=== PATIENT | female | born 1985 | race Caucasian/White ===

== ENCOUNTER 2017-05-17 16:37 | Emergency (ER) | payer OTHER ==
--- NOTE | 2017-05-17 16:41 | PDOC ---
Rapid Medical Evaluation Time Seen by Provider: 05/17/17 16:39 Medical Evaluation: 05/17/17 16:39 I have performed a brief in-person evaluation of this patient. The patient presents with a chief complaint of: , vaginal bleeding x 2 days , denies pain, LMP 3/, + home Pertinent physical exam findings: n/a I have ordered the following: labs, US The patient will proceed to the ED for further evaluation. Discharge Disposition - Diagnosis Vaginal bleeding - Referrals - Patient Instructions - Post Discharge Activity
[2017-05-17 16:42] VITALS: BP 148/85; PULSE 89; TEMP 98; BMI 27.3
[2017-05-17 17:44] LABS: BASO % 0.8 % (0-2.0); EOS % 0.5 % (0-4.5); HEMATOCRIT 44.9 % (32.4-45.2); HEMOGLOBIN 15.4 GM/dL (10.7-15.3); LYMPH % 10.7 % (8-40); MCH 31.7 pg (25.7-33.7); MCHC 34.4 g/dl (32.0-36.0); MEAN CELL VOLUME 92.4 fl (80-96); MEAN PLT VOLUME 8.9 fl (7.5-11.1); MONO % 6.5 % (3.8-10.2); NEUT % 81.5 % (42.8-82.8); PLATELET COUNT 284 K/MM3 (134-434); RBC 4.86 M/mm3 (3.60-5.2); RDW 12.6 % (11.6-15.6); WHITE BLOOD COUNT 10.3 K/mm3 (4.0-10.0)
[2017-05-17 18:11] LABS: ALBUMIN 4.1 g/dl (3.4-5.0); ALK PHOS 69 U/L (45-117); ANION GAP 6 (8-16); BILIRUBIN,TOTAL 0.2 mg/dL (0.2-1.0); BLOOD UREA NITROGEN 7 mg/dL (7-18); CALCIUM 8.9 mg/dL (8.5-10.1); CHLORIDE 106 mmol/L (98-107); CO2 26 mmol/L (21-32); CREATININE 0.7 mg/dL (0.55-1.02); GLUCOSE,RANDOM 77 mg/dL (74-106); POTASSIUM 4.3 mmol/L (3.5-5.1); SGOT/AST 24 U/L (15-37); SGPT/ALT 26 U/L (12-78); SODIUM 138 mmol/L (136-145); TOT PROT 7.4 g/dl (6.4-8.2)
--- NOTE | 2017-05-17 18:39 | PDOC ---
History of Present Illness - General Chief Complaint: Vaginal Bleeding Stated Complaint: VAGINAL BLEEDING (POSSIBLE ) Time Seen by Provider: 05/17/17 16:39 - History of Present Illness Initial Comments: 05/17/17 18:54 31yo F p/w 1 episode of pink vaginal discharge today and mild period like cramping yesterday, resolved today. Pt had positive test today. She requests confirmation of with labs and US. Denies current pain or vag bleeding. Denies headache, weakness, CP, SOB, abd pain, dysuria, frequency, urgency, LE edema, numbness. Past History - Past Medical History Allergies/Adverse Reactions: Allergies Allergy/AdvReac Type Severity Reaction Status Date / Time No Known Allergies Allergy Verified 05/17/17 16:42 Home Medications: Ambulatory Orders NK [No Known Home Medication] 05/17/17 COPD: No - Reproductive History Is Patient Now?: Yes (#): 1 Para: 0 Therapeutic (s) & number: No Spontaneous : 0 - Suicide/Smoking/Psychosocial Hx Smoking History: Never smoked Information on smoking cessation initiated: No Hx Alcohol Use: No Drug/Substance Use Hx: No Substance Use Type: None Review of Systems - Review of Systems Comments:: 05/17/17 19:09 GENERAL/CONSTITUTIONAL: No fever or chills. No weakness. HEAD, EYES, EARS, NOSE AND THROAT: No change in vision. No ear pain or discharge. No sore throat. GASTROINTESTINAL: No nausea, vomiting, diarrhea or constipation. GENITOURINARY: No dysuria, frequency, or change in urination. +pink vaginal dc CARDIOVASCULAR: No chest pain or shortness of breath. RESPIRATORY: No cough, wheezing, or hemoptysis. MUSCULOSKELETAL: No joint or muscle swelling or pain. No neck or back pain. SKIN: No rash NEUROLOGIC: No headache, vertigo, loss of consciousness, or change in strength/ sensation. ENDOCRINE: No increased thirst. No abnormal weight change. HEMATOLOGIC/LYMPHATIC: No anemia, easy bleeding, or history of blood clots. ALLERGIC/IMMUNOLOGIC: No hives or skin allergy. *Physical Exam - Vital Signs Last Vital Signs Temp Pulse Resp BP Pulse Ox 98 F 89 17 148/85 98 05/17/17 16:40 05/17/17 16:40 05/17/17 16:40 05/17/17 16:40 05/17/17 16:40 - Physical Exam Comments: 05/17/17 19:30 GENERAL: Awake, alert, and fully oriented, in no acute distress HEAD: No signs of trauma EYES: PERRLA, EOMI, sclera anicteric, conjunctiva clear ENT: Auricles normal inspection, hearing grossly normal, nares patent, oropharynx clear without exudates. Moist mucosa NECK: Normal ROM, supple, no lymphadenopathy, JVD, or masses LUNGS: Breath sounds equal, clear to auscultation bilaterally. No wheezes, and no crackles HEART: Regular rate and rhythm, normal S1 and S2, no murmurs, rubs or gallops ABDOMEN: Soft, nontender, normoactive bowel sounds. No guarding, no rebound. No masses. No CVAT PELVIC: speculum exam with normal cervix, closed with no bleeding. Mild white vaginal discharge, no bleeding. Bimanual exam with no midline or adnexal ttp, no CMP, cervix closed. EXTREMITIES: Normal range of motion, no edema. No clubbing or cyanosis. No cords, erythema, or tenderness NEUROLOGICAL: Normal speech, cranial nerves intact, negative pronator drift, 5/ 5 strength in all 4 extremities, normal sensation to light touch in all 4 extremities, normal cerebellar exam, normal gait, normal reflexes and tone SKIN: Warm, Dry, normal turgor, no rashes or lesions noted. ED Treatment Course - LABORATORY CBC & Chemistry Diagram: 05/17/17 17:35 05/17/17 17:35 - ADDITIONAL ORDERS Additional order review: Laboratory Results 05/17/17 17:35 Sodium 138 Potassium 4.3 Chloride 106 Carbon Dioxide 26 Anion Gap 6 L BUN 7 Creatinine 0.7 Creat Clearance w eGFR > 60 Random Glucose 77 Calcium 8.9 Total Bilirubin 0.2 AST 24 ALT 26 Alkaline Phosphatase 69 Total Protein 7.4 Albumin 4.1 Beta HCG, Quant 49762.9 05/17/17 17:35 RBC 4.86 MCV 92.4 MCHC 34.4 RDW 12.6 MPV 8.9 Neutrophils % 81.5 Lymphocytes % 10.7 Monocytes % 6.5 Eosinophils % 0.5 Basophils % 0.8 Medical Decision Making - Medical Decision Making 05/17/17 18:33 31yo F p/w mild pink vaginal discharge today and mild pelvic cramping yesterday, both of which have resolved. Initial BP in triage elevated with BP 140s, on my exam, BP 118/74. Exam with mild vag discharge, no bleeding or ttp. Likely threatened ab. Thusfar, labs wnl, US with viable 6 week with HR 111 (which is on the low side). UA pending. Results explained to patient. She feels well at this time and appears clinically stable. 05/17/17 20:44 UA with rare bacteria and epithelial cells. Culture is pending. Given bacteria, will treat with macrobid. Pt feels well, no further bleeding in ED, requests DC home. Will DC to f/u with OB I discussed the physical exam findings, ancillary test results and final diagnoses with the patient. I answered all of the patient's questions. The patient was satisfied with the care received and felt comfortable with the discharge plan and treatment plan. The patient will call their primary care physician within 24 hours to arrange follow-up and will return to the Emergency Department with any new, persistent or worsening symptoms. *DC/Admit/Observation/Transfer Diagnosis at time of Disposition: Vaginal bleeding, UTI (urinary tract infection) - Discharge Dispostion Disposition: HOME Admit: No - Referrals Referrals: Juliana Coleman MD [Primary Care Provider] - Sonja Dunn MD [Certified Nurse Field Mechanic/Site Lead] - - Patient Instructions Printed Discharge Instructions: DI for Threatened Additional Instructions: Follow up with [employer]ESS[employer] STE[employer]ER TENDER Eileen Dunn within 1 week. Return to the emergency department if you have any new, worsening, or concerning symptoms. Print Language: YI - Post Discharge Activity - Attestations Physician Attestion: 05/17/17 19:41 I, Dr. Sadia Balderrama MD, attest that this document has been prepared under my direction and personally reviewed by me in its entirety. I further attest, that it accurately reflects all work, treatment, procedures and medical decision -making performed by me.
[2017-05-17 19:45] LABS: URINE APPEARANCE CLEAR; URINE BILIRUBIN NEGATIVE (<2.0 mg/dL); URINE BLOOD 1+ (NEGATIVE); URINE COLOR STRAW; URINE GLUCOSE (UA) NEGATIVE (NEGATIVE); URINE KETONE NEGATIVE (NEGATIVE); URINE LEUK ESTERASE NEGATIVE (NEGATIVE); URINE NITRITE NEGATIVE (NEGATIVE); URINE PROTEIN NEGATIVE (NEGATIVE); URINE UROBILINOGEN NEGATIVE mg/dL (0.2-1.0)
[2017-05-17 20:23] LABS: EPI CELLS RARE /HPF (FEW); URINE BACTERIA RARE /hpf (NONE SEEN)
== END 2017-05-17 21:04 | disposition home or self-care (01) ==
LOC: JER 16:37
DX: O26.891 Other specified pregnancy related conditions, first trimester (principal); O23.31 Infections of other parts of urinary tract in pregnancy, first trimester; Z3A.01 Less than 8 weeks gestation of pregnancy
CPT/HCPCS: 36415; 76817-TC; 80053; 81003; 81015; 84702; 85025; 86850; 86900; 86901; 87086; 87491; 87591; 99283-25